=== PATIENT | female | born 1940 | race African-American/Black ===

== ENCOUNTER 2024-05-06 02:31 | Emergency (ER) | payer OTHER ==
[~2024-05-06] VITALS: Ht 170.2 cm; Wt 80.0 kg
[2024-05-06 02:40] VITALS: O2SAT 99
[2024-05-06 03:54] LABS: BASOPHILS % 0.6 % (0.0-2.0); EOSINOPHILS % 0.7 % (0.0-5.0); HEMATOCRIT. 39.1 % (36.0-48.0); HEMOGLOBIN. 12.6 g/dL (12.0-16.0); LYMPHOCYTES % 10.9 % (20.0-50.0); MEAN CORPUSCULAR HEMOGLOBIN 29.5 pg (28.0-32.0); MEAN CORPUSCULAR HGB CONC 32.3 g/dL (31.0-37.0); MEAN CORPUSCULAR VOLUME 91.5 fL (81.0-99.0); MEAN PLATELET VOLUME 8.5 fl (7.4-10.4); MONOCYTES % 7.6 % (2.0-8.0); NEUTROPHILS % 80.2 % (40.0-76.0); PLATELET 118 x1000/uL (130-400); RED BLOOD CELL COUNT 4.27 mill/uL (4.2-5.4); WHITE BLOOD COUNT 5.7 x1000/uL (4.5-11.0)
[2024-05-06 03:56] LABS: CHLORIDE 107 mEq/L (98-107); SODIUM 143 mEq/L (136-145)
[2024-05-06 03:57] LABS: CARBON DIOXIDE 30 mEq/L (21-32)
[2024-05-06 03:58] LABS: CALCIUM 9.5 mg/dL (8.7-10.4)
[2024-05-06 04:02] LABS: CREATININE 1.4 mg/dL (0.6-1.0)
[2024-05-06 04:03] LABS: GLUCOSE 100 mg/dL (70-105); TROPONIN I HIGH SENSITIVITY 24 ng/L (3.0-34); UREA NITROGEN BLOOD 15 mg/dL (9-23)
[2024-05-06 04:04] LABS: ALANINE AMINOTRANSFERASE 24 IU/L (10-49); ALBUMIN 4.3 g/dL (3.2-4.8); ASPARTATE AMINOTRANSFERASE 23 IU/L (<34)
[2024-05-06 04:05] LABS: BILIRUBIN DIRECT 0.2 mg/dL (<=3.0); BILIRUBIN TOTAL 0.9 mg/dL (0.1-1.0); PROTEIN TOTAL 6.8 g/dL (6.0-8.3)
[2024-05-06] MEDS: CLONIDINE 0.1MG TABLET PO ONE (05:24)
[2024-05-06] MEDS: LABETALOL 5MG/ML 4ML INJ IV ONE (06:30)
[2024-05-06 07:50] VITALS: BP 112/56; PULSE 70; RESP 16; TEMP 98; O2SAT 100
== END 2024-05-06 08:04 | disposition short-term general hospital (02) ==
LOC: ER 03:57 → CANBEDREQ 07:59 → ER 08:04
DX: I16.0 Hypertensive urgency (principal); I10 Essential (primary) hypertension; F03.90 Unspecified dementia, unspecified severity, without behavioral disturbance, psychotic disturbance, mood disturbance, and anxiety
CPT/HCPCS: 99285; 96374; 70450; 71045; 80076; 80048; 83880; 85025; 84484; 36415; 93005; J3490

== ENCOUNTER 2024-08-05 12:43 | Emergency (ER) | payer OTHER ==
[~2024-08-05] VITALS: Ht 165.1 cm; Wt 75.0 kg
[2024-08-05 12:45] VITALS: O2SAT 98
[2024-08-05 15:45] LABS: BASOPHILS % 0.6 % (0.0-2.0); EOSINOPHILS % 1.7 % (0.0-5.0); HEMATOCRIT. 29.5 % (36.0-48.0); HEMOGLOBIN. 9.9 g/dL (12.0-16.0); LYMPHOCYTES % 8.5 % (20.0-50.0); MEAN CORPUSCULAR HEMOGLOBIN 30.3 pg (28.0-32.0); MEAN CORPUSCULAR HGB CONC 33.7 g/dL (31.0-37.0); MEAN PLATELET VOLUME 9.7 fl (7.4-10.4); NEUTROPHILS % 79.2 % (40.0-76.0); PLATELET 136 x1000/uL (130-400); RED BLOOD CELL COUNT 3.27 mill/uL (4.2-5.4); RED CELL DISTRIBUTION WIDTH 15.4 % (11.6-14.6); WHITE BLOOD COUNT 8.4 x1000/uL (4.5-11.0)
[2024-08-05 15:50] LABS: CHLORIDE 104 mEq/L (98-107); POTASSIUM 3.8 mEq/L (3.5-5.1); SODIUM 141 mEq/L (136-145)
[2024-08-05 15:51] LABS: CALCIUM 9.2 mg/dL (8.7-10.4); CARBON DIOXIDE 29 mEq/L (21-32)
[2024-08-05 15:56] LABS: CREATININE 1.3 mg/dL (0.6-1.0); GLUCOSE 112 mg/dL (70-105); UREA NITROGEN BLOOD 22 mg/dL (9-23)
[2024-08-05 15:58] LABS: ALANINE AMINOTRANSFERASE 24 IU/L (10-49); ALBUMIN 3.9 g/dL (3.2-4.8); ASPARTATE AMINOTRANSFERASE 47 IU/L (<34); BILIRUBIN DIRECT 0.3 mg/dL (<=3.0); BILIRUBIN TOTAL 0.9 mg/dL (0.1-1.0); PROTEIN TOTAL 6.6 g/dL (6.0-8.3)
[2024-08-05 18:47] LABS: CLARITY URINE TURBID (CLEAR); COLOR URINE DARK YELLOW (YELLOW); GLUCOSE URINE NEGATIVE (NEGATIVE); KETONES URINE NEGATIVE (NEGATIVE); LEUKOCYTE ESTERASE URINE 3+ (NEGATIVE); NITRITE URINE NEGATIVE (NEGATIVE); OCCULT BLOOD URINE 3+ (NEGATIVE); PROTEIN URINE 2+ (NEGATIVE); SPECIFIC GRAVITY URINE 1.014 (1.005-1.030)
[2024-08-05 19:16] LABS: BACTERIA URINE 4+; SQUAMOUS EPITHELIAL CELL URINE 1+ /lpf (RARE/1+)
[2024-08-05 19:17] LABS: RBC URINE 50-100 /hpf (0-2); WBC URINE 50-100 /hpf (0-2)
[2024-08-05] MEDS: CEFTRIAXONE 1GM/50ML 50 ML IV NR (19:29)
[2024-08-05 19:49] LABS: INR 1.4; PROTHROMBIN TIME 14.8 sec (9.6-11.0)
[2024-08-05] MEDS: HYDRALAZINE 20MG/ML VIAL IV NR (20:22)
[2024-08-05 20:50] VITALS: BP 131/70; PULSE 80; RESP 15; TEMP 36.50292; O2SAT 100
== END 2024-08-05 20:55 | disposition short-term general hospital (02) ==
LOC: ER 12:43
DX: R41.82 Altered mental status, unspecified (principal); I10 Essential (primary) hypertension; F03.918 Unspecified dementia, unspecified severity, with other behavioral disturbance; Z88.0 Allergy status to penicillin
CPT/HCPCS: 99285; 70450; 96365; 96375; 80076; 80048; 81003; 83690; 85025; 85610; 87086; 36415; 74176; J0696; J0360

== ENCOUNTER 2024-11-03 17:31 | Inpatient (IN) | payer OTHER, MEDICARE ==
[~2024-11-03] VITALS: Ht 170.2 cm; Wt 71.7 kg
[2024-11-03 17:40] VITALS: O2SAT 100
[2024-11-03 21:48] LABS: BASOPHILS % 0.5 % (0.0-2.0); EOSINOPHILS % 0.5 % (0.0-5.0); HEMOGLOBIN. 12.3 g/dL (12.0-16.0); LYMPHOCYTES % 9.9 % (20.0-50.0); MEAN CORPUSCULAR HEMOGLOBIN 30.3 pg (28.0-32.0); MEAN CORPUSCULAR HGB CONC 33.2 g/dL (31.0-37.0); MEAN CORPUSCULAR VOLUME 91.3 fL (81.0-99.0); MEAN PLATELET VOLUME 8.8 fl (7.4-10.4); MONOCYTES % 7.2 % (2.0-8.0); NEUTROPHILS % 81.9 % (40.0-76.0); PLATELET 109 x1000/uL (130-400); RED BLOOD CELL COUNT 4.06 mill/uL (4.2-5.4); RED CELL DISTRIBUTION WIDTH 15.6 % (11.6-14.6); WHITE BLOOD COUNT 7.2 x1000/uL (4.5-11.0)
[2024-11-03 21:51] LABS: CHLORIDE 104 mEq/L (98-107); POTASSIUM 3.7 mEq/L (3.5-5.1); SODIUM 140 mEq/L (136-145)
[2024-11-03 21:52] LABS: CALCIUM 9.6 mg/dL (8.7-10.4); CARBON DIOXIDE 30 mEq/L (21-32)
[2024-11-03 21:53] LABS: INR 1.3; PARTIAL THROMBOPLASTIN TIME 29.4 sec (23.4-31.0); PROTHROMBIN TIME 14.4 sec (9.6-11.0)
[2024-11-03 21:55] LABS: TROPONIN I HIGH SENSITIVITY 29 ng/L (3.0-34)
[2024-11-03] MEDS: HYDRALAZINE 20MG/ML VIAL IV ONE (21:55)
[2024-11-03 21:57] LABS: CREATININE 1.3 mg/dL (0.6-1.0); GLUCOSE 93 mg/dL (70-105); UREA NITROGEN BLOOD 19 mg/dL (9-23)
[2024-11-03] MEDS: NITROGLYCERIN 0.4MG TABLET SL SL ONE (22:25)
[2024-11-03] MEDS: SODIUM CHLORIDE 0.9% 500 ML IV ONE (22:25)
[2024-11-04] MEDS ORDERED: LORAZEPAM 0.5MG TABLET PO PRN
[2024-11-04] MEDS ORDERED: DOCUSATE SODIUM 100MG CAPSULE PO PRN
[2024-11-04] MEDS ORDERED: ACETAMINOPHEN 325MG TABLET PO PRN ×2
[2024-11-04] MEDS ORDERED: IPRATROPIUM/ALBUTEROL 0.5-3(2.5)MG/3ML NEB HHN PRN
[2024-11-04] MEDS ORDERED: GUAIFENESIN 200MG/10ML SUGAR FREE UDC PO PRN
[2024-11-04] MEDS ORDERED: ONDANSETRON HCL 4MG/2ML INJ IV PRN
[2024-11-04] MEDS ORDERED: CLONIDINE 0.1MG TABLET PO PRN
[2024-11-04] MEDS: SODIUM CHLORIDE 0.45% 1,000 ML IV SCH (00:35)
[2024-11-04 10:35] LABS: BASOPHILS % 0.8 % (0.0-2.0); EOSINOPHILS % 1.5 % (0.0-5.0); HEMATOCRIT. 38.8 % (36.0-48.0); HEMOGLOBIN. 12.5 g/dL (12.0-16.0); LYMPHOCYTES % 19.6 % (20.0-50.0); MEAN CORPUSCULAR HEMOGLOBIN 30.6 pg (28.0-32.0); MEAN CORPUSCULAR HGB CONC 32.3 g/dL (31.0-37.0); MEAN CORPUSCULAR VOLUME 94.7 fL (81.0-99.0); MEAN PLATELET VOLUME 8.9 fl (7.4-10.4); MONOCYTES % 9.2 % (2.0-8.0); NEUTROPHILS % 68.9 % (40.0-76.0); PLATELET 107 x1000/uL (130-400); RED CELL DISTRIBUTION WIDTH 15.9 % (11.6-14.6); WHITE BLOOD COUNT 4.7 x1000/uL (4.5-11.0)
[2024-11-04 10:41] LABS: CALCIUM 6.1 mg/dL (8.7-10.4); CARBON DIOXIDE 18 mEq/L (21-32); CHLORIDE 100 mEq/L (98-107); SODIUM 124 mEq/L (136-145)
[2024-11-04 10:46] LABS: CREATININE 0.7 mg/dL (0.6-1.0); GLUCOSE 62 mg/dL (70-105); TRIGLYCERIDE 56 mg/dL (0-150)
[2024-11-04 10:47] LABS: LDL CHOLESTEROL 52 mg/dL (5-100); T4 FREE 1.32 ng/dL (0.89-1.76); UREA NITROGEN BLOOD 11 mg/dL (9-23)
[2024-11-04 10:48] LABS: ALANINE AMINOTRANSFERASE 11 IU/L (10-49); ALBUMIN 2.4 g/dL (3.2-4.8); ASPARTATE AMINOTRANSFERASE 27 IU/L (<34); CHOLESTEROL 96 mg/dL (<200); HDL CHOLESTEROL 26 mg/dL (>65); THYROID STIMULATING HORMONE 1.51 uIU/mL (0.55-4.78)
[2024-11-04 10:49] LABS: BILIRUBIN TOTAL 0.6 mg/dL (0.1-1.0)
[2024-11-04] MEDS: ENOXAPARIN 40MG/0.4ML SYR SUBCUT SCH (11:20)
[2024-11-04] MEDS: POTASSIUM CHLORIDE 20MEQ/PACKET PO NR (11:40)
[2024-11-04 13:03] LABS: CHLORIDE 108 mEq/L (98-107); POTASSIUM 3.8 mEq/L (3.5-5.1)
[2024-11-04 13:04] LABS: CALCIUM 8.9 mg/dL (8.7-10.4); CARBON DIOXIDE 29 mEq/L (21-32)
[2024-11-04 13:09] LABS: CREATININE 1.2 mg/dL (0.6-1.0); GLUCOSE 156 mg/dL (70-105); UREA NITROGEN BLOOD 18 mg/dL (9-23)
[2024-11-04 13:11] LABS: PHOSPHORUS 2.8 mg/dL (2.5-4.9)
[2024-11-04 13:37] LABS: SODIUM 145 mEq/L (136-145)
[2024-11-04 14:55] VITALS: BP 131/80; PULSE 91; RESP 16; TEMP 36.7; O2SAT 93
[2024-11-04] MEDS ORDERED: DEXTROSE 50% WATER 50ML SYRINGE IV PRN (15:30)
[2024-11-04 15:47] VITALS: BP 131/80; PULSE 91; RESP 16; TEMP 36.8
[2024-11-04] MEDS: INSULIN LISPRO 100 UNITS/ML SUBCUT SCH (16:54)
[2024-11-04] MEDS: BLOOD SUGAR DIAGNOSTIC STRIP TEST SCH (16:54)
[2024-11-04] MEDS ORDERED: LEVO25TA7 (17:38)
[2024-11-04] MEDS ORDERED: ATOR40TA70 (17:38)
[2024-11-04] MEDS: FUROSEMIDE 20MG TABLET PO SCH (18:37)
[2024-11-04] MEDS: LEVOTHYROXINE SODIUM 25MCG TABLET PO SCH (18:37)
[2024-11-04 19:57] VITALS: BP 135/74; PULSE 72; RESP 18; TEMP 36.4; O2SAT 97
[2024-11-04] MEDS: FAMOTIDINE 20MG TABLET PO SCH (22:12)
[2024-11-04] MEDS: ATORVASTATIN CALCIUM 40MG TABLET PO SCH (22:12)
== END 2024-11-04 22:55 | disposition short-term general hospital (02) | DRG 305 ==
LOC: ER 17:31 → EDBEDREQ 22:28 → EDBEDREQTM 22:28 → MICUSO 22:28 → 8WST 11-04 14:50
PROVIDERS: ADMIT Hospitalist; ATTEND Hospitalist
DX: I16.0 Hypertensive urgency (principal); I13.0 Hypertensive heart and chronic kidney disease with heart failure and stage 1 through stage 4 chronic kidney disease, or unspecified chronic kidney disease; I25.10 Atherosclerotic heart disease of native coronary artery without angina pectoris; I50.9 Heart failure, unspecified; Z20.822 Contact with and (suspected) exposure to COVID-19; E03.9 Hypothyroidism, unspecified; R62.7 Adult failure to thrive; F03.90 Unspecified dementia, unspecified severity, without behavioral disturbance, psychotic disturbance, mood disturbance, and anxiety; N18.9 Chronic kidney disease, unspecified; F41.9 Anxiety disorder, unspecified; Z68.24 Body mass index [BMI] 24.0-24.9, adult; Z86.718 Personal history of other venous thrombosis and embolism; Z95.1 Presence of aortocoronary bypass graft; Z79.01 Long term (current) use of anticoagulants; Z88.0 Allergy status to penicillin
CPT/HCPCS: 36415; 71045; 80048; 80053; 80061; 82962; 83605; 83735; 83880; 84100; 84439; 84443; 84484; 85025; 87426; 93005; 93970; 99291; A4606; J0360; J1650; J1815; J7040